=== PATIENT | female | born 1940 | race Caucasian/White ===

== ENCOUNTER 2018-01-11 03:30 | Emergency (ER) | payer MEDICARE, OTHER ==
[~2018-01-11] VITALS: Ht 160 cm; Wt 87.1 kg
[~2018-01-11 03:30] MED LIST: ALBU90AE INH; AMLO5TAB4 PO; CLOP75TA15 PO; EZET10TA13 PO; FURO-144 PO; LOSA1TAB15 PO; MECL25TA3 PO; MEMA10TA PO; METO200T3 PO; POTA-88 PO; SIMV20TA2 PO
--- NOTE | 2018-01-11 03:38 | NUR ---
PT PRESENTED TO THE ER WITH A C/O CONSTIPATION AND HEMERRHOIDS. PT WAS TAKEN FROM THE CAR TO ER12 VIA WC. PT IS ON THE MONITOR AND CONTINUOUS PULSE OX. PT'S VSS. NO SOB NOTED. DR PELAYO IS AT THE BEDSIDE. PT ABD IS NOT TENDER WITH PALPATION. CHECKED PT'S HEMORRHOIDS. MULTIPLE NOTED. NO ACTIVE BLEEDING NOTED.
[2018-01-11] MEDS ORDERED: LACTULOSE 10 G/15 ML UDC (PYXIS) ONE (03:50)
[2018-01-11] MEDS ORDERED: BISACODYL SUPP (10 MG) 10 MG/SUPP.RECT SUPP.RECT RC ONE ×2 (03:51→04:00)
[2018-01-11] MEDS ORDERED: ISOS60TA4 PO (03:54)
[2018-01-11] MEDS ORDERED: IBUP-1957 PO (03:54)
[2018-01-11] MEDS ORDERED: METO200T49 PO (03:54)
[2018-01-11] MEDS ORDERED: ACET-53 PO (03:54)
[2018-01-11] MEDS ORDERED: MAG1TAB.8 PO (03:54)
[2018-01-11] MEDS ORDERED: POTA20TA83 PO (03:54)
[2018-01-11] MEDS ORDERED: CLON0.1T PO (03:54)
[2018-01-11] MEDS ORDERED: CHOL100040 PO (03:54)
[2018-01-11] MEDS ORDERED: DEXL60CA3 PO (03:54)
[2018-01-11] MEDS ORDERED: CLON0.3T TD (03:54)
[2018-01-11] MEDS ORDERED: GLYB1TAB2 PO (03:54)
[2018-01-11] MEDS ORDERED: PARO20TA7 PO (03:54)
[2018-01-11] MEDS ORDERED: KETO120S3 TP (03:54)
[2018-01-11] MEDS ORDERED: LACTULOSE 10 G/15 ML UDC (PYXIS) PO ONE (04:00)
[2018-01-11] MEDS ORDERED: KETOROLAC TROMETHAMINE INJ 30 MG/ML VIAL ONE (04:08)
[2018-01-11 04:16] LABS: BASOPHILS % (AUTO) 0.3 % (0.0-2.0); EOSINOPHILS % (AUTO) 0.5 % (0.0-6.0); HEMATOCRIT 35 % (33-45); HEMOGLOBIN 12.1 g/dL (11.5-14.8); LYMPHOCYTES # (AUTO) 1.2 /CMM (0.8-4.8); LYMPHOCYTES % (AUTO) 9.8 % (20.0-44.0); MEAN CORPUSCULAR HGB CONC 34 g/dl (31.0-36.0); MEAN CORPUSCULAR VOLUME 86 fL (82-100); MONOCYTES # (AUTO) 0.4 /CMM (0.1-1.30); MONOCYTES % (AUTO) 3.3 % (2.0-12.0); NEUTROPHILS # (AUTO) 10.9 /CMM (1.8-8.9); NEUTROPHILS % (AUTO) 86.1 % (43.0-81.0); PLATELET COUNT (AUTO) 179 /CMM (150-450); RDW COEFFICIENT OF VARIATION 13.8 (11.5-15.0); RED BLOOD CELL COUNT(AUTO) 4.07 MIL/uL (4.0-5.2); WHITE BLOOD COUNT (AUTO) 12.6 K/uL (4.3-11.0)
--- NOTE | 2018-01-11 04:25 | NUR ---
IN AND OUT CATH DONE. APPROX 400 ML YELLOW URINE OUTPUT NOTED. SAMPLE SENT TO LAB.
[2018-01-11 04:27] LABS: CALCIUM, SERUM 6.2 mg/dL (8.5-10.1); CARBON DIOXIDE 29 mmol/L (21-32); CHLORIDE 99 mmol/L (98-107); CREATININE 1.3 mg/dL (0.6-1.3); GLUCOSE 207 mg/dL (74-106); POTASSIUM 3.3 mmol/L (3.5-5.1); SODIUM SERUM 135 mmol/L (136-145); UREA NITROGEN, BLOOD 27 mg/dL (7-18)
[2018-01-11] MEDS ORDERED: PHENYLEPHRINE/SHK LV/MO/PET,WH 30 GM TUBE RC PRN (04:30)
[2018-01-11] MEDS ORDERED: KETOROLAC TROMETHAMINE INJ 60 MG/2 ML VIAL IM ONE (04:30)
[2018-01-11 04:40] LABS: B-TYPE NATRIURETIC PEPTIDE 608 PG/ML (0-125)
[2018-01-11 04:58] LABS: APPEARANCE,URINE CLEAR (CLEAR); BILIRUBIN,URINE NEGATIVE (NEGATIVE); BLOOD, URINE NEGATIVE Ery/uL (NEGATIVE); COLOR,URINE YELLOW (YELLOW); KETONES,URINE NEGATIVE (NEGATIVE); LEUKOCYTE ESTERASE ,URINE NEGATIVE (NEGATIVE); NITRITE, URINE NEGATIVE (NEGATIVE); PROTEIN,URINE NEGATIVE (NEGATIVE); UGLUCOSE NEGATIVE (NEGATIVE); UROBILINOGEN,URINE 0.2 EU/dL (0.2)
[2018-01-11] MEDS ORDERED: POTASSIUM CHLORIDE 20 MEQ TAB.PRT.SR PO ONE ×2 (05:30)
--- NOTE | 2018-01-11 05:48 | NUR ---
BED GIRARD REMOVED. SMALL BM NOTED IN BED GIRARD.
[2018-01-11 05:50] VITALS: BP 113/72
--- NOTE | 2018-01-11 06:00 | NUR ---
Patient discharged to home in stable condition. Written and verbal after care instructions given. Patient verbalizes understanding of instruction AND RX. PT'S DAUGHTER IS DRIVING PT HOME. VSS. PT LEFT VIA WC.
== END 2018-01-11 05:50 | disposition home or self-care (01) ==
LOC: ER 03:31
DX: K59.09 Other constipation (principal); E87.6 Hypokalemia; K64.9 Unspecified hemorrhoids; I11.0 Hypertensive heart disease with heart failure; I50.9 Heart failure, unspecified; E11.9 Type 2 diabetes mellitus without complications; E78.5 Hyperlipidemia, unspecified; F03.90 Unspecified dementia, unspecified severity, without behavioral disturbance, psychotic disturbance, mood disturbance, and anxiety; I25.10 Atherosclerotic heart disease of native coronary artery without angina pectoris; M19.90 Unspecified osteoarthritis, unspecified site; Z79.84 Long term (current) use of oral hypoglycemic drugs; Z86.73 Personal history of transient ischemic attack (TIA), and cerebral infarction without residual deficits
CPT/HCPCS: 36415; 51701; 71045; 80048; 81001; 82962; 83880; 85025; 93005; 96372; 99285; A4606; J1885; 81000-TC; Z7610